=== PATIENT | male | born 1960 | race Two or more races ===

== ENCOUNTER 2016-04-08 10:22 | Emergency (ER) | payer OTHER ==
[~2016-04-08] VITALS: Ht 177.8 cm; Wt 76.7 kg
[2016-04-08 11:16] LABS: BASOPHILS % (AUTO) 1.1 % (0.0-2.0); DIFF TOTAL % 100 %; EOSINOPHILS # (AUTO) 0.1 /CMM (0.0-0.7); EOSINOPHILS % (AUTO) 1.2 % (0.0-6.0); HEMATOCRIT 46 % (39-51); LYMPHOCYTES # (AUTO) 1.6 /CMM (0.8-4.8); MEAN CORPUSCULAR HEMOGLOBIN 30 PG (26.0-33.0); MEAN CORPUSCULAR HGB CONC 33 g/dl (31.0-36.0); MEAN CORPUSCULAR VOLUME 91 fL (80-96); MONOCYTES # (AUTO) 0.4 /CMM (0.1-1.30); MONOCYTES % (AUTO) 8.9 % (2.0-12.0); NEUTROPHILS # (AUTO) 2.2 /CMM (1.8-8.9); NEUTROPHILS % (AUTO) 51.8 % (43.0-81.0); PLATELET COUNT (AUTO) 248 /CMM (150-450); RED BLOOD CELL COUNT(AUTO) 5.07 MIL/uL (4.5-6.0); WHITE BLOOD COUNT (AUTO) 4.3 K/uL (4.3-11.0)
[2016-04-08 11:39] LABS: ANION GAP 16 (5-14); CALCIUM, SERUM 8.8 mg/dL (8.5-10.1); CARBON DIOXIDE 23 mmol/L (21-32); CHLORIDE 103 mmol/L (98-107); CREATININE 1.1 mg/dL (0.6-1.3); GFR 69 mL/min (>60); GLUCOSE 117 mg/dL (74-106); POTASSIUM 5.1 mmol/L (3.5-5.1); SODIUM SERUM 137 mmol/L (136-145); UREA NITROGEN, BLOOD 9 mg/dL (7-18)
[2016-04-08 11:43] LABS: ACETAMINOPHEN 0 ug/ml (10-30); ALANINE AMINOTRANSFERASE 27 U/L (12-78); ALBUMIN 3.7 g/dL (3.4-5.0); ASPARTATE AMINOTRANSFERASE 17 U/L (15-37); BILIRUBIN,DIRECT 0.1 mg/dL (0.0-0.2); BILIRUBIN,TOTAL 0.3 mg/dL (0.2-1.0); INDIRECT BILIRUBIN 0.2 mg/dL (0.0-1.1); SALICYLATE 1.6 mg/dL (2.8-20.0); TOTAL PROTEIN, SERUM 7.4 g/dL (6.4-8.2)
[2016-04-08 12:41] LABS: TROPONIN I < 0.017 ng/mL (0.00-0.056)
[2016-04-08 12:56] VITALS: BP 119/85
== END 2016-04-08 12:57 ==
LOC: ER 10:24
DX: R41.82 Altered mental status, unspecified (principal); N40.0 Benign prostatic hyperplasia without lower urinary tract symptoms
CPT/HCPCS: 36415; 70450-TC; 80048-TC; 80076-TC; 84484-TC; 85025-TC; A4606; G6038-TC; G6039-TC; G6040-TC; Z7610

== ENCOUNTER 2016-04-22 23:32 | Emergency (ER) | payer OTHER ==
[~2016-04-22] VITALS: Ht 177.8 cm; Wt 74.8 kg
[2016-04-23] MEDS ORDERED: TDAP [DIPH/PERTUSSIS/TET] 0.5 ML VIAL IM STA (00:55)
[2016-04-23] MEDS ORDERED: LIDOCAINE 1%-EPI 1:100,000 50 ML VIAL IJ STA (00:55)
[2016-04-23 01:40] VITALS: BP 114/72
== END 2016-04-23 01:41 | disposition home or self-care (01) ==
LOC: ER 23:37
DX: L98.499 Non-pressure chronic ulcer of skin of other sites with unspecified severity (principal); D17.9 Benign lipomatous neoplasm, unspecified
CPT/HCPCS: A4606; J3490; Z7610

== ENCOUNTER 2016-06-20 06:12 | Emergency (ER) | payer OTHER ==
[~2016-06-20] VITALS: Ht 177.8 cm; Wt 76.2 kg
--- NOTE | 2016-06-20 06:25 | NUR ---
To bed 7 a 55 yo male bibself with c/o right pointer finger laceration and pain at 10/10. Noted area swelling, open wound with minimal bleeding. Patient is unable to move hand. Comfort measures initiated. Initial wound care done. Awaiting for er md guadarrama.
[2016-06-20] MEDS ORDERED: MORPHINE SULFATE INJ 4 MG/ML DISP.SYRIN ONE (06:35)
[2016-06-20] MEDS ORDERED: ONDANSETRON 4 MG TAB.RAPDIS ONE (06:36)
--- NOTE | 2016-06-20 06:42 | NUR ---
medicated patient per Dr Victor's orders.
--- NOTE | 2016-06-20 06:43 | NUR ---
xr at bedside.
[2016-06-20] MEDS ORDERED: ONDANSETRON 4 MG TAB.RAPDIS PO ONE (07:00)
[2016-06-20] MEDS ORDERED: MORPHINE SULFATE INJ 2 MG/ML DISP.SYRIN IM ONE (07:00)
[2016-06-20] MEDS ORDERED: LIDOCAINE HCL/PF 1% 30 ML VIAL TP ONE (07:30)
--- NOTE | 2016-06-20 08:00 | NUR ---
PT TOLERATED PROCEDURE OF STITCHES TO RT INDEX FINGER WELL. CLEANED AND DRESSED VSS CONT TO MONITOR
--- NOTE | 2016-06-20 08:28 | NUR ---
PT. VERBALIZED UNDERSTANDING OF AFTERCARE INSTRUCTIONS.Patient discharged to home in stable condition. Written and verbal after care instructions given. Patient verbalizes understanding of instruction.
[2016-06-20 08:30] VITALS: BP 138/92
== END 2016-06-20 08:32 | disposition home or self-care (01) ==
LOC: ER 06:16
DX: S63.280A Dislocation of proximal interphalangeal joint of right index finger, initial encounter (principal); S61.210A Laceration without foreign body of right index finger without damage to nail, initial encounter; W22.8XXA Striking against or struck by other objects, initial encounter; Y93.89 Activity, other specified; Y92.89 Other specified places as the place of occurrence of the external cause; Y99.8 Other external cause status
CPT/HCPCS: 12002; 26770; 73130; 96372; 99284; J2270; J3490; Q0162

== ENCOUNTER 2016-07-01 14:18 | Inpatient (IN) | payer OTHER ==
[~2016-07-01] VITALS: Ht 177.8 cm; Wt 73.5 kg
--- NOTE | 2016-07-01 15:05 | NUR ---
PT BIB SELF C/O R INDEX FINGER PAIN, SWELLING, CELLULITIS AND ABSCESS 72 HRS S/P OPEN DISLOCATION OF THIS FINGER. DENIES FEVER, CHILLS. RESP EVEN UNLABORED. SKIN WARM NONDIAPHORETIC. NO OTHER COMPLAINTS. IN ER BED 10.
[2016-07-01] MEDS ORDERED: CLINDAMYCIN 900 MG in IV D5W 100 ML IV ONE (16:00)
[2016-07-01] MEDS ORDERED: PIPERACILLIN /TAZOBACTAM 3.375 G in IV D5W 50 ML IV ONE (16:30)
[2016-07-01] MEDS ORDERED: VANCOMYCIN 1 GM in IV D5W 250 ML IV ONE ×2 (16:30→19:00)
[2016-07-01] MEDS ORDERED: MORPHINE SULFATE INJ 4 MG/ML DISP.SYRIN IV ONE (16:30)
[2016-07-01 16:36] LABS: BASOPHILS # (AUTO) 0.1 /CMM (0.0-0.2); BASOPHILS % (AUTO) 1.1 % (0.0-2.0); EOSINOPHILS % (AUTO) 0.6 % (0.0-6.0); HEMATOCRIT 43 % (39-51); HEMOGLOBIN 14.6 g/dL (13.5-17.5); LYMPHOCYTES # (AUTO) 1.6 /CMM (0.8-4.8); LYMPHOCYTES % (AUTO) 22.9 % (20.0-44.0); MEAN CORPUSCULAR HEMOGLOBIN 31 PG (26.0-33.0); MEAN CORPUSCULAR HGB CONC 34 g/dl (31.0-36.0); MEAN CORPUSCULAR VOLUME 91 fL (80-96); MONOCYTES # (AUTO) 0.8 /CMM (0.1-1.30); MONOCYTES % (AUTO) 12.2 % (2.0-12.0); NEUTROPHILS # (AUTO) 4.4 /CMM (1.8-8.9); NEUTROPHILS % (AUTO) 63.2 % (43.0-81.0); PLATELET COUNT (AUTO) 245 /CMM (150-450); RDW COEFFICIENT OF VARIATION 13.8 (11.5-15.0); RED BLOOD CELL COUNT(AUTO) 4.75 MIL/uL (4.5-6.0); WHITE BLOOD COUNT (AUTO) 6.9 K/uL (4.3-11.0)
[2016-07-01 16:46] LABS: CREATININE 0.9 mg/dL (0.6-1.3); POTASSIUM 3.9 mmol/L (3.5-5.1)
[2016-07-01 16:50] LABS: INR 0.95 (0.87-1.13); PROTHROMBIN TIME 9.9 SECS (9.5-12.7)
[2016-07-01 16:52] LABS: ALBUMIN 3.8 g/dL (3.4-5.0); BILIRUBIN,DIRECT 0.3 mg/dL (0.0-0.2); BILIRUBIN,TOTAL 1.6 mg/dL (0.2-1.0); TOTAL PROTEIN, SERUM 7.6 g/dL (6.4-8.2)
[2016-07-01] MEDS ORDERED: IV SET PRIMARY PUMP SET 1 EA INFUS.SET MC ONE ×2 (16:59→19:54)
[2016-07-01] MEDS ORDERED: MORPHINE SULFATE INJ 2 MG/ML DISP.SYRIN ONE (16:59)
--- NOTE | 2016-07-01 17:22 | NUR ---
RESTING COMFORTABLY IN BED, ALL NEEDS ATTENDED TO.
[2016-07-01] MEDS ORDERED: VITA1TAB56 PO (17:26)
[2016-07-01] MEDS ORDERED: TAMS-12 PO (17:26)
--- NOTE | 2016-07-01 17:26 | NUR ---
REPORT GIVEN TO PHILL ARANA FOR ADMISSION
--- NOTE | 2016-07-01 17:51 | NUR ---
PAGED WEATHERIZATION COORDINATOR PANEL DR JOSSUE JOYA
--- NOTE | 2016-07-01 18:04 | NUR ---
PT REPORT GOOD REFLIEF OF PAIN WITH MORPHINE. NAD NOTED. ALL NEEDS ATTENDED TO.
[2016-07-01 18:20] VITALS: BP 115/83
--- NOTE | 2016-07-01 18:23 | NUR ---
TRANSFERRED TO THE FLOOR; ACCEPTED BY DR. MARCUM
[2016-07-01] MEDS ORDERED: ACETAMINOPHEN 650 MG/20.3 ML UDC NG PRN (19:00)
[2016-07-01] MEDS ORDERED: IV NS 0.9% 1,000 ML BAG IV ONE (19:00)
[2016-07-01] MEDS ORDERED: ONDANSETRON HCL/PF 4 MG/2 ML VIAL IVP PRN (19:00)
[2016-07-01] MEDS ORDERED: FEE PK DOSING 1 MIN EA MC ONE (19:10)
[2016-07-01 19:30] VITALS: BP 119/81
[2016-07-01 19:30] LABS: ALBUMIN 3.9 g/dL (3.4-5.0); BILIRUBIN,DIRECT 0.3 mg/dL (0.0-0.2); TOTAL PROTEIN, SERUM 8.1 g/dL (6.4-8.2)
--- NOTE | 2016-07-01 19:30 | NUR ---
TELE STEELSCOPE OPERATOR INITIAL NOTES RECEIVED REPORT FROM AM NURSE PHILL WADDELL OF SEPSIS. PT CHECKED HE'S RESTING COMFORTABLY IN BED WITHOUT ANY ACUTE DISTRESS OR ANY DISCOMFORT NOTED. VITAL SINGS FF. BP 119/81, PULSE 95, RESP 18, TEMP 97.1 NA D O2 SAT 99%. ASSESSMENT DONE AND RECORDED. KEPT HIM WARM AND COMFORTABLE AT ALL TIMES. PLACE CALL LIGHT AT REACH. WILL CONTINUE TO MONITOR.
[2016-07-01 19:42] LABS: LACTIC ACID 0.6 mmol/L (0.4-2.0)
[2016-07-01] MEDS ORDERED: SECONDARY IV SET 1 EA INFUS.SET MC ONE (19:54)
[2016-07-01 20:00] VITALS: BP 119/81
--- NOTE | 2016-07-01 20:00 | NUR ---
FIELD OPERATIONS SUPERVISOR/NOTES STARTED THE IVF NS AFTER CLARIFIED TO DR MARCUM BECAUSE LACTIC ACID 1.0 TO 0.6. WILL CONTINUE TO MONITOR.
[2016-07-01] MEDS: MEROPENEM 1 G in IV NS 0.9% 100 ML IV SCH (22:30)
--- NOTE | 2016-07-01 22:30 | NUR ---
PUBLIC RELATIONS MANAGER/NOTES MERREM IVP BAG HUNG BY NURSE CARISSA/RN ORDERED. SNACKS ALSO SERVED . KEPT HIM COMFORTABLE AT ALL TIMES. WILL CONTINUE TO MONITOR.
[2016-07-02] VITALS: BP 102/63
--- NOTE | 2016-07-02 00:31 | NUR ---
WORK ENVIRONMENT SAFETY INSPECTOR/NOTES SPOKE TO DR SRI COFFMAN REGARDING SEPSIS ASSESSMENT AND HE ORDERED TO CANCELED BECAUSE PT NOT IN SEPSIS. LACTID ACID 0.6 , WBC 6.9 . CONTINUE MONITORING.
[2016-07-02] MEDS: VANCOMYCIN 0.75 GM in IV D5W 250 ML IV SCH ×3 (02:39→18:26)
--- NOTE | 2016-07-02 03:00 | NUR ---
CAPTAIN WAITER/WAITRESS/DELONTE LEE HUNG BY ANOTHER NURSE , PT REMAINS SLEEPING COMFORTABLY WITHOUT ANY DISCOMFORT NOTED. TELE SR PER MONITOR. KEPT HIM WARM AND COMFORTABLE AT ALL TIMES. WILL CONTINUE TO MONITOR. PLACE CALL LIGHT AT REACH.
[2016-07-02] MEDS: MEROPENEM 1 G in IV NS 0.9% 100 ML IV SCH ×3 (04:42→21:31)
--- NOTE | 2016-07-02 07:00 | NUR ---
TELE METAL SPRAYER PRODUCTION CLOSING NOTES PT CHECKED , VANCO DONE NO ADVERSE REACTION NOTED, PT DENIES ANY PAIN OR ANY DISCOMFORT. STABLE JUSTICE THE NIGHT AND SLEPT WELL . ALL DUE MEDS GIVEN AND ALL NEEDS MET. KEPT HIM COMFORTABLE AT ALL TIMES. VITAL SIGNS STABLE AND ENDORSE TO AM NURSE FOR CONTINUITY OF CARE. PLACE CALL LIGHT AT REACH.
[2016-07-02 07:02] VITALS: BP 129/89
--- NOTE | 2016-07-02 07:05 | NUR ---
TELE/RN AM NOTES RECEIVED PATIENT IN BED, AWAKE. ALERT, WITHOUT SOB, C/O RIGHT INDEX FINGER PAIN 09/28, PATIENT IS ON RA, TOLERATING WELL, NO DISTRESS. IV LINE RFA INTACT, NO REDNESS, PATENT. KEPT COMFORTABLE, NEEDS MET, CALL LIGHT WITHIN EASY REACH. WILL CONTINUE TO MONITOR ACCORDINGLY.
[2016-07-02 07:16] LABS: BASOPHILS % (AUTO) 0.5 % (0.0-2.0); EOSINOPHILS # (AUTO) 0.1 /CMM (0.0-0.7); EOSINOPHILS % (AUTO) 1.7 % (0.0-6.0); HEMATOCRIT 42 % (39-51); HEMOGLOBIN 13.9 g/dL (13.5-17.5); LYMPHOCYTES % (AUTO) 33.9 % (20.0-44.0); MEAN CORPUSCULAR HEMOGLOBIN 30 PG (26.0-33.0); MEAN CORPUSCULAR HGB CONC 33 g/dl (31.0-36.0); MEAN CORPUSCULAR VOLUME 92 fL (80-96); NEUTROPHILS # (AUTO) 2.8 /CMM (1.8-8.9); NEUTROPHILS % (AUTO) 46.9 % (43.0-81.0); PLATELET COUNT (AUTO) 254 /CMM (150-450); RDW COEFFICIENT OF VARIATION 14.3 (11.5-15.0); RED BLOOD CELL COUNT(AUTO) 4.56 MIL/uL (4.5-6.0); WHITE BLOOD COUNT (AUTO) 5.9 K/uL (4.3-11.0)
[2016-07-02 07:34] LABS: INR 0.93 (0.87-1.13); PROTHROMBIN TIME 9.9 SECS (9.5-12.7)
[2016-07-02 07:37] LABS: BILIRUBIN,TOTAL 1.3 mg/dL (0.2-1.0); CALCIUM, SERUM 8.3 mg/dL (8.5-10.1); CREATININE 0.9 mg/dL (0.6-1.3); TOTAL PROTEIN, SERUM 6.6 g/dL (6.4-8.2)
[2016-07-02 07:42] LABS: CREATINE KINASE MB 5.2 ng/mL (0-3.6)
[2016-07-02] MEDS: MORPHINE SULFATE INJ 2 MG/ML DISP.SYRIN IV PRN ×3 (07:55→21:17)
[2016-07-02 08:00] VITALS: BP 126/74
[2016-07-02] MEDS: PANTOPRAZOLE 40 MG VIAL IV SCH (08:01)
[2016-07-02 08:38] LABS: BAND % (MANUAL) 1 % (0.0-5.0); EOSINOPHILS % (MANUAL) 1 % (0-4); LYMPHOCYTES % (MANUAL) 41 % (16-48); MONOCYTES % (MANUAL) 9 % (0-11.0); NEUTROPHILS % (MANUAL) 48 (42-76); PLATELET ESTIMATE ADEQUATE
[2016-07-02] MEDS ORDERED: IV NS 0.9% 1,000 ML ONE (10:45)
[2016-07-02] MEDS ORDERED: IBUPROFEN 400 MG TABLET PO PRN (11:00)
--- NOTE | 2016-07-02 11:30 | NUR ---
MS/RN NOTES PER PATIENT REQUEST, RECEIVED AN ORDER FOR IBUPROFEN 400 MG PO Q6H FOR MODERATE PAIN AND INFLAMMATION OF RIGHT INDEX FINGER.
[2016-07-02 16:00] VITALS: BP 123/79
[2016-07-02] MEDS ORDERED: VANCOMYCIN 1 GM in IV D5W 250 ML IV SCH (18:00)
--- NOTE | 2016-07-02 19:00 | NUR ---
MS RN OPENING NOTE PATIENT IS ALERT AND ORIENTED X4 NO S/S OF DISTRESS, NO CHEST PAIN. NO SOB OR DISTRESS NOTED. IN STABLE CONDITION. SAFETY MEASURES IMPLEMENTED. IV INTACT NO S/S OF INFILTRATION NOTED. CALL LIGHT WITHIN REACH. ON LOW BED TO ENSURE SAFETY. WILL CONTINUE TO MONITOR
--- NOTE | 2016-07-02 19:10 | NUR ---
MS/RN CLOSING NOTES PATIENT IN BED, AWAKE, ALERT, WITHOUT SOB, ON RA, TOLERATING WELL, NO DISTRESS, DENIES PAIN. ADMINISTERED PAIN MEDICATION ORDERED PRN FOR RIGHT INDEX FINGER PAIN. IV LINE RFA INTACT, PATENT, NO REDNESS, NO S/SX INFLAMMATION. KEPT COMFORTABLE NEEDS ANTICIPATED IN TIMELY MANNER, WITH CALL LIGHT WITHIN EASY REACH ALL THE TIME. WILL ENDORSE TO THE REMEDIAL MASSEUR ACCORDINGLY.
[2016-07-02 20:00] VITALS: BP 131/91
[2016-07-03] MEDS: VANCOMYCIN 0.75 GM in IV D5W 250 ML IV SCH ×3 (02:16→17:46)
[2016-07-03] MEDS: MORPHINE SULFATE INJ 2 MG/ML DISP.SYRIN IV PRN ×4 (02:17→21:54)
[2016-07-03] MEDS: MEROPENEM 1 G in IV NS 0.9% 100 ML IV SCH ×2 (05:34→15:02)
--- NOTE | 2016-07-03 06:31 | NUR ---
MS RN CLOSING NOTES PATIENT COMFORTABLY ASLEEP AND EASILY AWAKEN, HEAD OF BED ELEVATED FOR BETTER LUNG EXPANSION AND GOOD CIRCULATION. A/O X 4, IV SITE NO S/S OF INFILTRATED, RESPIRATIONS EVEN AND UNLABORED. NO S/S OF ACUTE DISTRESS, NO SOB, NO COUGH, NO CONGESTION, SKIN WARM AND DRY TO TOUCH, AFEBRILE, ALL NURSING CARE NEEDS PROVIDED AND RENDERED, NEEDS ATTENDED AND ANTICIPATED, KEPT CLEAN AND DRY AND COMFORTABLE, BLADDER NOT DISTENDED, GOOD SKIN CARE PROVIDED. ABDOMEN SOFT AND NON TENDER. NO C/O OF CONSTIPATION. ALL DUE MEDS WAS GIVEN TOLERATED. OFFLOAD AT ALL TIMES. FREQUENT VISUAL CHECK DONE FOR SAFETY EVERY 2 HOURS. SAFE HAZARD FREE ENVIRONMENT PROVIDED. CALL LIGHT WITHIN EASY TO REACH, ON LOW BED AT ALL TIMES TO ENSURE SAFETY, WILL ENDORSE TO THE NEXT SHIFT CONTINUE PLAN OF CARE. ON ATB WITH NO A/R NOTED. ALL ABNORMAL LABS REPORTED TO
[2016-07-03 06:51] LABS: BASOPHILS % (AUTO) 0.7 % (0.0-2.0); EOSINOPHILS # (AUTO) 0.1 /CMM (0.0-0.7); EOSINOPHILS % (AUTO) 1.5 % (0.0-6.0); HEMATOCRIT 42 % (39-51); HEMOGLOBIN 13.7 g/dL (13.5-17.5); LYMPHOCYTES % (AUTO) 35.1 % (20.0-44.0); MEAN CORPUSCULAR HEMOGLOBIN 30 PG (26.0-33.0); MEAN CORPUSCULAR HGB CONC 33 g/dl (31.0-36.0); MEAN CORPUSCULAR VOLUME 92 fL (80-96); MONOCYTES # (AUTO) 0.8 /CMM (0.1-1.30); MONOCYTES % (AUTO) 13.5 % (2.0-12.0); NEUTROPHILS # (AUTO) 2.7 /CMM (1.8-8.9); NEUTROPHILS % (AUTO) 49.2 % (43.0-81.0); PLATELET COUNT (AUTO) 251 /CMM (150-450); RDW COEFFICIENT OF VARIATION 14.4 (11.5-15.0); RED BLOOD CELL COUNT(AUTO) 4.52 MIL/uL (4.5-6.0); WHITE BLOOD COUNT (AUTO) 5.6 K/uL (4.3-11.0)
--- NOTE | 2016-07-03 07:05 | NUR ---
MS/RN AM NOTES RECEIVED PATIENT AWAKE, ALERT, IN THE BED, WITHOUT SOB, DENIES PAIN,C/O RIGHT INDEX FINGER PAIN 7/10, LESS SWELLING COMPARED FROM YESTERDAY. PATIENT IS ON RA, TOLERATING WELL, NO DISTRESS. IV LINE RFA INTACT, NO REDNESS, PATENT. NEEDS MET, CALL LIGHT WITHIN EASY REACH. WILL CONTINUE TO MONITOR ACCORDINGLY
[2016-07-03 07:06] LABS: MAGNESIUM 1.7 mg/dL (1.8-2.4); PHOSPHORUS 3.4 mg/dL (2.5-4.9); POTASSIUM 4.1 mmol/L (3.5-5.1)
[2016-07-03 08:00] VITALS: BP 133/97
[2016-07-03] MEDS: LACTOBACILLUS RHAMNOSUS GG 1 EACH CAP.SPRINK PO SCH ×2 (08:20→17:50)
[2016-07-03] MEDS: PANTOPRAZOLE 40 MG VIAL IV SCH (08:26)
[2016-07-03] MEDS ORDERED: IV NS 0.9% 1,000 ML ONE (09:18)
[2016-07-03] MEDS ORDERED: IV SET PRIMARY PUMP SET 1 EA INFUS.SET MC ONE (09:22)
[2016-07-03 10:00] VITALS: BP 133/97
[2016-07-03] MEDS: Magnesium 1GM/D5W 100ML PREMIX 100 ML IV SCH ×2 (11:50→15:07)
[2016-07-03] MEDS ORDERED: Magnesium 1GM/D5W 100ML PREMIX 100 ML IV SCH (12:00)
--- NOTE | 2016-07-03 12:01 | NUR ---
MS/RN NOTES CALLED DR. VANCE (PLASTIC SURGEON) LEFT MESSAGE WITH FAUSTINO, PER DR. MARCUM'S REQUEST. WITH THE MESSAGE IF THERE IS ANY UPDATES, OR ORDERS, ANY PLANS FOR SURGERY FOR THIS PATIENT. WILL CONTINUE TO F/U
--- NOTE | 2016-07-03 14:15 | NUR ---
MS/RN NOTES LEFT MESSAGE TO [facility] DOCTOR (ELLIE) PER DOCTOR JOSSUE'S REQUEST, ORDERED A CONSULT FOR THIS PATIENT PRIOR DISCHARGE HOME. PATIENT AWARE, WILL CONTINUE TO FOLLOW UP
[2016-07-03] MEDS ORDERED: SECONDARY IV SET 1 EA INFUS.SET MC ONE (15:00)
[2016-07-03 16:00] VITALS: BP 130/91
[2016-07-03] MEDS: NEOMY SULF/BACITRAC ZN/POLY 15 GM TUBE TP SCH (17:47)
[2016-07-03] MEDS ORDERED: TAMSULOSIN 0.4 MG CAP.SR.24H PO SCH ×2 (18:00)
--- NOTE | 2016-07-03 18:55 | NUR ---
MS/RN CLOSING NOTES PATIENT IN BED, AWAKE, WITHOUT PAIN, NO SOB, COMFORTABLE, ON RA TOLERATING WELL. FLOMAX ORDER RECEIVED FROM DR. MARCUM PER PATIENTS REQUEST, GIVEN, NEEDS ANTICIPATED IN TIMELY MANNER, RIGHT INDEX FINGER TREATMENT DONE, KEPT CLEAN DRY COMFORTABLE WITH CALL LIGHT WITHIN EASY REACH. ENDORSED TO THE TRAVEL INSURANCE AGENT ACCORDINGLY FOR SHMUEL
[2016-07-03 20:00] VITALS: BP 132/87
[2016-07-04] MEDS: VANCOMYCIN 0.75 GM in IV D5W 250 ML IV SCH (01:07)
--- NOTE | 2016-07-04 06:39 | NUR ---
MS RN CLOSING NOTES IN BED ASLEEP AND EASILY AWAKEN, SEMI FOWLERS POSITION, ON ATB WITH NO A/R NOTED. SKIN WARM AND DRY TO TOUCH, AFEBRILE, ALL NURSING CARE NEEDS PROVIDED AND RENDERED, NEEDS ATTENDED AND ANTICIPATED, STABLE CONDITION NO CHEST PAIN, NO S/S OF DISTRESS NOTED. KEPT CLEAN AND DRY AND COMFORTABLE, BLADDER NOT DISTENDED, CONTINUE WITH CURRENT MEDICATION ORDERED, NO LATE ADVERSE REACTION NOTED/REPORTED. FLUIDS PROVIDED ORDERED. COOPERATIVE TO HIS PLAN OF CARE. SAFE HAZARD FREE ENVIRONMENT MAINTAINED. TREATMENT ORDERED, GOOD SKIN CARE PROVIDED. ALL DUE MEDS WAS GIVEN. KEPT AT LOW BED. FREQUENT VISUAL CHECK FOR SAFETY. PLAN OF CARE ORDERED. CALL LIGHT ATTENDED PROMPTLY AND KEPT AT EASY REACH. WILL ENDORSE TO THE NEXT SHIFT CONTINUE PLAN OF CARE.
[2016-07-04 06:59] LABS: CALCIUM, SERUM 8.8 mg/dL (8.5-10.1); CREATININE 0.8 mg/dL (0.6-1.3); POTASSIUM 4.6 mmol/L (3.5-5.1)
--- NOTE | 2016-07-04 07:10 | NUR ---
MS RN NOTES RECEIVED PATIENT IN BED, AWAKE. A/O X4. BREATHING EVEN AND NON LABORED. IV IN LFA G20 PATENT AND INTACT, FLUSHES WELL. NO C/O PAIN AT THIS TIME. CALL LIGHT WITHIN REACH. WILL CONT TO MONITOR.
[2016-07-04 08:00] VITALS: BP 133/86
[2016-07-04] MEDS: LACTOBACILLUS RHAMNOSUS GG 1 EACH CAP.SPRINK PO SCH (08:35)
[2016-07-04] MEDS: PANTOPRAZOLE 40 MG VIAL IV SCH (08:35)
[2016-07-04] MEDS: NEOMY SULF/BACITRAC ZN/POLY 15 GM TUBE TP SCH (08:37)
[2016-07-04] MEDS: MORPHINE SULFATE INJ 2 MG/ML DISP.SYRIN IV PRN (08:44)
--- NOTE | 2016-07-04 08:45 | NUR ---
RIGHT INDEX FINGER WOUND, C/O OF PAIN 10/29. GIVEN MORPHINE SULFATE 2MG IV PRN, WILL REASSESS. DRESSING CHANGED IN RIGHT INDEX FINGER.
--- NOTE | 2016-07-04 09:25 | NUR ---
PATIENT TO BE DISCHARGED HOME ORDERED.
[2016-07-04] MEDS ORDERED: SULF1TAB48 PO (09:28)
[2016-07-04] MEDS ORDERED: AMOX1TAB15 PO (09:28)
--- NOTE | 2016-07-04 10:27 | NUR ---
MS RN DISCHARGED PATIENT HAS BEEN CLEARED FOR DISCHARGE HOME BY . PATIENT IS AMBULATORY, V/S REMAINS STABLE, AFEBRILE. NO C/O PAIN OR ANY DISCOMFORT. IV IN LFA REMOVED, GAUZE APPLIED. DISCHARGE INSTRUCTION GIVEN TO THE PATIENT, VERBALIZED UNDERSTANDING. PRESCRIPTION GIVEN TO THE PATIENT, BELONGINGS CHECKED AND SEND WITH THE PATIENT UPON DC. PATIENT LEFT HOSP IN STABLE CONDITION VIA PRIVATE CAR, ACCOMPANIED BY TIA-.
== END 2016-07-04 11:05 | disposition home or self-care (01) | DRG 720 ==
LOC: ER 14:22 → TELE 17:47 → MED 07-02 08:54
PROVIDERS: ADMIT Internal Medicine; ATTEND Internal Medicine
DX: A41.9 Sepsis, unspecified organism (principal); T81.30XA Disruption of wound, unspecified, initial encounter; I10 Essential (primary) hypertension; N40.0 Benign prostatic hyperplasia without lower urinary tract symptoms; F17.200 Nicotine dependence, unspecified, uncomplicated; F10.20 Alcohol dependence, uncomplicated; Y90.9 Presence of alcohol in blood, level not specified; F17.210 Nicotine dependence, cigarettes, uncomplicated; L02.511 Cutaneous abscess of right hand; L03.011 Cellulitis of right finger
CPT/HCPCS: 36415; 71010-TC; 73140-TC; 80048-TC; 80053-TC; 80076-TC; 80202-TC; 82553-TC; 83605-TC; 83735-TC; 84100-TC; 85025-TC; 85610-TC; 85652-TC; 85730-TC; 87040-TC; 87081-TC; 93307-TC; A4606; A6402; A6403; C9113; J2185; J2270; J2543; J3370; J3475; J7030; J7060; Z7610

== ENCOUNTER 2017-01-07 02:42 | Emergency (ER) | payer OTHER ==
[~2017-01-07 02:42] MED LIST: AMOX1TAB15 PO; SULF1TAB48 PO; TAMS-12 PO; VITA1TAB56 PO
--- NOTE | 2017-01-07 05:56 | NUR ---
SEE DOWNTIME FORMS
== END 2017-01-07 03:15 | disposition home or self-care (01) ==
LOC: ER 02:42
DX: K40.90 Unilateral inguinal hernia, without obstruction or gangrene, not specified as recurrent (principal); I10 Essential (primary) hypertension
CPT/HCPCS: A4606; Z7502; Z7610

== ENCOUNTER 2017-09-06 12:37 | Emergency (ER) | payer OTHER ==
[~2017-09-06] VITALS: Ht 177.8 cm; Wt 73.5 kg
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
[2017-09-06] MEDS ORDERED: IV NS 0.9% 1,000 ML BAG IV ONE (13:00)
--- NOTE | 2017-09-06 13:03 | NUR ---
IV ACCESSED TO LAC 20
--- NOTE | 2017-09-06 13:03 | NUR ---
PATIENT TO CT
[2017-09-06 13:06] LABS: BASOPHILS # (AUTO) 0.1 /CMM (0.0-0.2); BASOPHILS % (AUTO) 1.3 % (0.0-2.0); EOSINOPHILS % (AUTO) 0.8 % (0.0-6.0); HEMATOCRIT 40 % (39-51); HEMOGLOBIN 13.3 g/dL (13.5-17.5); LYMPHOCYTES # (AUTO) 3.2 /CMM (0.8-4.8); LYMPHOCYTES % (AUTO) 51.4 % (20.0-44.0); MEAN CORPUSCULAR HGB CONC 33 g/dl (31.0-36.0); MEAN CORPUSCULAR VOLUME 88 fL (80-96); MONOCYTES # (AUTO) 0.5 /CMM (0.1-1.30); MONOCYTES % (AUTO) 7.7 % (2.0-12.0); NEUTROPHILS # (AUTO) 2.5 /CMM (1.8-8.9); NEUTROPHILS % (AUTO) 38.8 % (43.0-81.0); PLATELET COUNT (AUTO) 264 /CMM (150-450); RDW COEFFICIENT OF VARIATION 13.6 (11.5-15.0); WHITE BLOOD COUNT (AUTO) 6.4 K/uL (4.3-11.0)
[2017-09-06 13:15] LABS: CARBON DIOXIDE 24 mmol/L (21-32); CHLORIDE 104 mmol/L (98-107); CREATININE 0.9 mg/dL (0.6-1.3); GLUCOSE 100 mg/dL (74-106); POTASSIUM 3.4 mmol/L (3.5-5.1); SODIUM SERUM 138 mmol/L (136-145); UREA NITROGEN, BLOOD 9 mg/dL (7-18)
[2017-09-06 13:16] LABS: ALCOHOL, BLOOD < 3 mg/dL (0-0)
[2017-09-06 13:19] LABS: INR 0.89 (0.85-1.15)
[2017-09-06] MEDS ORDERED: MORPHINE SULFATE INJ 2 MG/ML DISP.SYRIN IV ONE (14:00)
[2017-09-06] MEDS ORDERED: ONDANSETRON HCL/PF 4 MG/2 ML VIAL IVP ONE (14:00)
[2017-09-06] MEDS ORDERED: ONDANSETRON HCL/PF 4 MG/2 ML VIAL ONE (14:10)
[2017-09-06] MEDS ORDERED: MORPHINE SULFATE INJ 4 MG/ML DISP.SYRIN ONE (14:10)
[2017-09-06 14:42] VITALS: BP 132/86
== END 2017-09-06 14:44 | disposition home or self-care (01) ==
LOC: ER 12:38
DX: S09.8XXA Other specified injuries of head, initial encounter (principal); S02.2XXA Fracture of nasal bones, initial encounter for closed fracture; I10 Essential (primary) hypertension; Z59.0 Homelessness; Y04.8XXA Assault by other bodily force, initial encounter; Y93.89 Activity, other specified; Y92.831 Amusement park as the place of occurrence of the external cause; Y99.8 Other external cause status
CPT/HCPCS: 36415; 70450; 70486; 71045; 72125; 80048; 85025; 85730; 96374; 96375; 99285; A4606; A6402; A6403; G0480; J2270; J2405; J7030; Z7610